=== PATIENT | female | born 1995 | race Caucasian/White ===

== ENCOUNTER 2016-04-18 03:49 | Emergency (ER) | payer BC ==
[~2016-04-18] VITALS: Ht 167.6 cm; Wt 68.2 kg
[~2016-04-18 03:49] MED LIST: ADDERALL5 MG PO; APRI 0.15 MG-0.1 TAB PO; CLEOCIN HCL300 MG PO
[2016-04-18 03:52] VITALS: BP 124/79; TEMP 97.6
[2016-04-18] MEDS ORDERED: ADDERALL XR20 MG PO (03:56)
[2016-04-18 04:47] VITALS: PULSE 95
== END 2016-04-18 04:48 | disposition home or self-care (01) ==
LOC: COL.ER 03:49
DX: S01.81XA Laceration without foreign body of other part of head, initial encounter (principal); S00.81XA Abrasion of other part of head, initial encounter; W19.XXXA Unspecified fall, initial encounter; Y92.414 Local residential or business street as the place of occurrence of the external cause

== ENCOUNTER 2016-04-19 17:25 | Emergency (ER) | payer BC ==
[~2016-04-19] VITALS: Ht 167.6 cm; Wt 68.2 kg
[~2016-04-19 17:25] MED LIST changes: +ADDERALL XR20 MG PO
[2016-04-19 18:05] VITALS: TEMP 99.1
[2016-04-19 19:58] VITALS: BP 124/78; PULSE 78
== END 2016-04-19 20:02 | disposition home or self-care (01) ==
LOC: COL.ER 17:25
DX: S09.90XD Unspecified injury of head, subsequent encounter (principal); S01.112D Laceration without foreign body of left eyelid and periocular area, subsequent encounter; S05.12XD Contusion of eyeball and orbital tissues, left eye, subsequent encounter; X58.XXXD Exposure to other specified factors, subsequent encounter